=== PATIENT | male | born 1980 | race Caucasian/White ===

== ENCOUNTER 2023-05-24 15:07 | Emergency (ER) | payer SELFPAY ==
[~2023-05-24] VITALS: Ht 190.5 cm; Wt 90.7 kg
[2023-05-24 15:54] VITALS: BP 134/74; PULSE 85; RESP 18; TEMP 98.4; O2SAT 97
[2023-05-24 16:36] LABS: BILIRUBIN,URINE 1+ (NEGATIVE); LEUKOCYTE ESTERASE ,URINE NEGATIVE (NEGATIVE); NITRATE,URINE POSITIVE (NEGATIVE)
[2023-05-24 16:42] LABS: UAMPH METHAMP(SCRN) PRESUMPTIVE POSITIVE (co1000ng/mL); UR MDMA (ECSTASY) SCRN PRESUMPTIVE POSITIVE (c/o300ng/mL); UR METHADONE SCRN NEGATIVE (c/o300ng/mL); UR OPIATE SCRN NEGATIVE (c/o300ng/mL); UR PHENCYCLIDINE (PCP) SCRN NEGATIVE (c/o 25ng/mL); UR TETRAHYDROCANNABINOL SCRN PRESUMPTIVE POSITIVE (c/o 50ng/mL)
[2023-05-24 16:46] LABS: APPEARANCE,URINE CLOUDY; UA COLOR AMBER
[2023-05-24 16:57] LABS: BASOPHIL % 0.4 % (0.0-0.2); EOSINOPHIL # 0.1 10^3/uL (0.0-0.2); HEMATOCRIT(ML) 47.7 % (37.0-53.0); HEMOGLOBIN 17.3 g/dL (13.9-16.3); LYMPHOCYTES # 2.17 10^3/uL1 (1.0-4.8); LYMPHOCYTES % 29.8 % (24.0-44.0); MEAN CORP HGB CONCENTRATION 36.3 g/dL (33-36.5); MEAN CORP VOLUME 93.7 fL (78-100); MONOCYTES % 13.9 % (5.0-12.0); NEUTROPHILS % 54.9 % (41.0-85.0); PLATELET COUNT 176 10^3/uL (150-400); RED BLOOD CELL 5.09 10^6/uL (4.50-5.90); RED CELL DISTRIBUTION WIDTH 12.2 % (11.5-14.5); WHITE BLOOD CELL 7.3 10^3/uL (4.5-11.0)
[2023-05-24 16:58] LABS: ACETAMINOPHEN(ML) < 2 ug/mL (10-30); ALANINE AMINOTRANSFERASE(ML) 183 U/L (12-78); ALBUMIN(ML) 4.9 g/dL (3.4-5.0); ALBUMIN/GLOBULIN RATIO 1.289; ALKALINE PHOSPHATASE 113 U/L (50-136); ANION GAP 15.3; ASPARTATE AMINO TRANSFERASE 82 U/L (0-35); CALCIUM 9.6 mg/dL (8.4-10.5); CARBON DIOXIDE 24.7 mmol/L (20.0-32); CREATININE SERUM 0.85 mg/dL (0.59-1.40); EST GFR, NON-AA 98.8 (>/=60); GLUCOSE 128 mg/dL (74-106); SODIUM 139 mmol/L (132-145)
[2023-05-24 16:59] LABS: +ADD MANUAL DIFF(NO CHRG) NO; SALICYLATE(ML) < 2.8 mg/dL (2.8-20.0)
[2023-05-24] MEDS ORDERED: KLOR-CON 10 PO STA (17:19)
[2023-05-24] MEDS ORDERED: KLOR-CON 10 PO ONE (17:32)
[2023-05-24] MEDS ORDERED: ZYPREXA ZYDIS SL STA (17:47)
[2023-05-24] MEDS ORDERED: ZYPREXA ZYDIS ONE (17:49)
[2023-05-24] MEDS ORDERED: ROCEPHIN IM STA (17:56)
[2023-05-24] MEDS ORDERED: LIDOCAINE 1% VIAL ONE (18:00)
[2023-05-24] MEDS ORDERED: ROCEPHIN ONE (18:00)
[2023-05-24 18:09] VITALS: BP 134/74; PULSE 80; RESP 18; TEMP 98.4; O2SAT 97
[2023-05-24 18:55] VITALS: BP 130/70; PULSE 86; RESP 18; TEMP 98; O2SAT 97
== END 2023-05-25 05:10 | disposition short-term general hospital (02) ==
LOC: ER 15:07
DX: R45.850 Homicidal ideations (principal); R44.0 Auditory hallucinations; F12.90 Cannabis use, unspecified, uncomplicated; F15.90 Other stimulant use, unspecified, uncomplicated; F17.210 Nicotine dependence, cigarettes, uncomplicated; Z20.822 Contact with and (suspected) exposure to COVID-19
CPT/HCPCS: 99285; 87426; 96372; 87086; 80053; 85025; 36415; 80307; 80299 ×2; 82077; 84443; 93005; 81001; J2001; J3490; J0696; 80324; 80349; 80359; G0480